=== PATIENT | female | born 1945 | race American Indian/Alaskan Native ===

== ENCOUNTER → 2017-05-11 | Outpatient (CLI) | payer OTHER ==
[~2017-05-11] MED LIST: AA8/1CAP3 PO; ASPI-515 PO; ASPI-650 PO; ATOR40TA PO; CALC-112 PO; GABA300C10 PO; LEVO500T47 PO; LOSA25TA5 PO; METF500T4 PO; MULT-658 PO; OXYB5TAB7 PO; PRAM1.5T7 PO
== END | disposition home or self-care (01) ==
LOC: CFH 10:31
PROVIDERS: ATTEND Family Medicine
DX: Z12.31 Encounter for screening mammogram for malignant neoplasm of breast (principal)
CPT/HCPCS: G0202

== ENCOUNTER → 2018-05-09 | Outpatient (CLI) | payer OTHER ==
[~2018-05-09] MED LIST changes: +ASCO500T8 PO; +ASPI325T17 PO; +ATOR10TA9 PO; +CHOL200074 PO; +CRAN200C2 PO; +CYCL5TAB PO; +GARL10002 PO; +LOSA50TA6 PO; -METF500T4 PO; +METF500T5 PO; +OXYB10TA PO; +OXYC-302 PO; +PRAM0.5T5 PO; +VITA400C43 PO
== END | disposition home or self-care (01) ==
LOC: CFH 15:12
PROVIDERS: ATTEND Family Medicine
DX: I65.23 Occlusion and stenosis of bilateral carotid arteries (principal); I35.0 Nonrheumatic aortic (valve) stenosis; I10 Essential (primary) hypertension; Z87.891 Personal history of nicotine dependence
CPT/HCPCS: 93306; 93880

== ENCOUNTER → 2018-08-06 | Outpatient (CLI) | payer OTHER ==
[~2018-08-06] MED LIST changes: -LOSA25TA5 PO; +LOSA25TA6 PO; -LOSA50TA6 PO; +LOSA50TA7 PO; +METF500T17 PO; -METF500T5 PO
== END | disposition home or self-care (01) ==
LOC: CFH 14:10
PROVIDERS: ATTEND Family Medicine
DX: Z12.31 Encounter for screening mammogram for malignant neoplasm of breast (principal)
CPT/HCPCS: 77067

== ENCOUNTER 2019-08-12 10:27 | Outpatient (CLI) | payer MEDICARE ==
[~2019-08-12 10:27] MED LIST changes: +LOSA25TA25 PO; -LOSA25TA6 PO; +LOSA50TA14 PO; -LOSA50TA7 PO; -OXYB10TA PO; +OXYB10TA2 PO; +OXYB5TAB10 PO; -OXYB5TAB7 PO
== END 2019-08-12 23:59 | disposition home or self-care (01) ==
LOC: CFH 10:27
PROVIDERS: ATTEND Family Medicine
DX: Z12.31 Encounter for screening mammogram for malignant neoplasm of breast (principal); Z87.891 Personal history of nicotine dependence
CPT/HCPCS: 77067

== ENCOUNTER → 2020-08-16 | Outpatient (CLI) | payer MEDICARE ==
[~2020-08-16] MED LIST changes: -OXYB10TA2 PO; +OXYB10TA26 PO
== END | disposition home or self-care (01) ==
LOC: CFH 09:51
PROVIDERS: ATTEND Family Medicine
DX: Z12.31 Encounter for screening mammogram for malignant neoplasm of breast (principal); M85.89 Other specified disorders of bone density and structure, multiple sites
CPT/HCPCS: 77067; 77080

== ENCOUNTER 2020-12-05 14:30 | Emergency (ER) | payer MEDICARE ==
[~2020-12-05 14:30] MED LIST changes: +ASPI-1026 PO; -ASPI-515 PO; -ASPI-650 PO; +ASPI-963 PO; -OXYC-302 PO; +OXYC1TAB14 PO
--- NOTE | 2020-12-05 15:07 | NUR ---
PT BIB SPOUSE VIA POV D/T LT MIDDLE AND RING FINGER LAC WHILE PREPARING FOOD. PER PT TDAP WITHIN 5 YEARS. PT RESTING IN [facility], MONITORING IN PLACE, NADN AT THIS TIME, [place].
[2020-12-05] MEDS ORDERED: LIDOCAINE-MPF 1%, 5ML ONE (15:19)
--- NOTE | 2020-12-05 15:23 | NUR ---
Report received and care assumed. Meal break Madeline RODRIGUEZ placed Lidocaine vial at bedside and gas technician setting up for lac tray with irrigation now.
[2020-12-05] MEDS ORDERED: LIDOCAINE-MPF 1%, 5ML INFIL ONE (15:30)
[2020-12-05] MEDS ORDERED: PLEASE ENTER WEIGHT MC SCH (15:30)
--- NOTE | 2020-12-05 16:08 | NUR ---
Tech noted at bedside for lac irrigation.
[2020-12-05] MEDS ORDERED: BACITRACIN ZINC OINT 500U/GM, 0.9 GM ONE (16:20)
[2020-12-05 16:38] VITALS: BP 144/59
== END 2020-12-05 16:40 | disposition home or self-care (01) ==
LOC: ED 15:34
DX: S61.213A Laceration without foreign body of left middle finger without damage to nail, initial encounter (principal); S61.215A Laceration without foreign body of left ring finger without damage to nail, initial encounter; I10 Essential (primary) hypertension; E11.9 Type 2 diabetes mellitus without complications; Z90.49 Acquired absence of other specified parts of digestive tract; W26.9XXA Contact with unspecified sharp object(s), initial encounter; Y93.89 Activity, other specified; Y92.009 Unspecified place in unspecified non-institutional (private) residence as the place of occurrence of the external cause; Y99.8 Other external cause status
CPT/HCPCS: 12001; 99283

== ENCOUNTER 2020-12-15 14:17 | Emergency (ER) | payer MEDICARE ==
[~2020-12-15] VITALS: Ht 162.6 cm; Wt 73.3 kg
[2020-12-15 14:23] VITALS: BP 152/53
--- NOTE | 2020-12-15 14:33 | NUR ---
PT BROUGHT BACK TO ROOM FROM TRIAGE. PT LACERATED 2 FINGERS ON HER LEFT HAND A COUPLE DAYS AGO AND RECEIVED SUTURES. PT HERE TODAY FOR SUTURE REMOVAL.
--- NOTE | 2020-12-15 15:10 | NUR ---
Carl SANTIAGO AT BEDSIDE
--- NOTE | 2020-12-15 15:16 | NUR ---
DISCHARGE INSTRUCTIONS REVIEWED WITH PT. ALL QUESTIONS ANSWERED AT THIS TIME
== END 2020-12-15 15:18 | disposition home or self-care (01) ==
LOC: ED 15:02
DX: S61.213D Laceration without foreign body of left middle finger without damage to nail, subsequent encounter (principal); I10 Essential (primary) hypertension; X58.XXXD Exposure to other specified factors, subsequent encounter
CPT/HCPCS: 99281